=== PATIENT | female | born 1955 | race Caucasian/White ===

== ENCOUNTER → 2023-08-26 12:24 | Outpatient (REF) | payer OTHER, SELFPAY | LOC: RAD 12:24 | PROVIDERS: ATTENDING PHYSICIAN Internal Medicine | DX: J45.41 Moderate persistent asthma with (acute) exacerbation (principal) | CPT/HCPCS: 71046 ==

== ENCOUNTER 2023-08-30 23:53 | Emergency (ER) | payer OTHER, SELFPAY ==
[2023-08-30 23:56] VITALS: BP 155/96
[2023-08-31 00:45] VITALS: BMI 27.0
[2023-08-31 01:10] LABS: % Basophils 0.7 % (0-2); % Immature Granulocytes 3.2 % (0-0.5); % Lymphocytes 20.1 % (20.5-51.1); % Monocytes 5.5 % (1.7-9.3); % Neutrophils 70.5 % (42.2-75.2); Absolute Basophils 0.1 10^3/uL (0-0.2); Absolute Immature Granulocytes 0.4 10^3/uL (0-0.05); Absolute Lymphocytes 2.4 10^3/uL (1.2-3.4); Absolute Monocytes 0.6 10^3/uL (0.1-0.6); Absolute Neutrophils 8.3 10^3/uL (1.4-6.5); Hematocrit 37.7 % (37.0-47.0); Hemoglobin 13.2 g/dL (12.0-16.0); Mean Corpuscular Hgb 32.4 pg (27.0-31.0); Mean Corpuscular Volume 92.4 fL (81.0-99.0); Mean Platelet Volume 9.1 fL (7.4-10.4); Nucleated Red Blood Cells % 0 %; Platelet Count 363 10^3/uL (130-400); Red Blood Cell Count 4.08 10^6/uL (4.20-5.40); Red Cell Dist. Width 12.5 % (11.5-14.5); White Blood Cell Count 11.7 10^3/uL (4.8-10.8)
--- NOTE | 2023-08-31 01:14 | ED.GENMED ---
History of Present Illness
General
Chief Complaint: Abdominal Symptoms
Source: patient
Exam Limitations: none
Time Seen by Provider: 08/31/23 00:18
Nursing documentation reviewed up to this point in time: agreed with
History of Present Illness
History of Present Illness:
pt is a 67 y/o F h/o well controlled
no h/o cardiac symptoms
3 weeks ago started with R ear pain after watching grandkids who were sick
he had the pain fro 3 days before going to
starte augmentin
but then a few days later ymptoms worsening into sinuses and she started coughing
she called her PCP and they told her to do pred 40 mg day 1 and then pred 20 mg bid x 5 days which she did
went to see ENT for the ear last week and had NPL/scope showing sinusutis and was started on cefdinir on 08/24
pt says she still has been coughing but felt like with her qvar and her albuterol nebs she was improving
but then today felt pain in her left rib area worse with exhalation and severe with coughing
she is trying not to cough becaues of the pain
she denies tendenress in this area
she also feels her abdomen is bloated
no abdoimal tednerness
no edema in her legs
no h/o chf
no fever, chills
had cxr a few days ago before pain started
Past History
Past History
ED Past Medical History: Asthma, Cancer (skin cancer), GERD and NIDDM
ED Past Surgical History: Gynecological (NC, hysterectomy) and Other (Breast augmentation and abdominoplasty, wisdom teeth)
Social History
Tobacco: Non-smoker
Alcohol: None
Drug: None
Personal:
Living: with family
Phy Exam
Physical Exam
Physical Exam:
GENERAL: Alert , in no apparent distress
EYE: pupils equal and reactive
NECK: Supple
ENT: b/l TM s clear, pharynx erythematous but no tonsillar hypertrophy or exudates
CARDIAC: Regular rate and rhythm, no edema
LUNGS: no resp distress, no tachypnea
+ occ cough and appears uncomfortable L ribs with cough
b/l wheezing
crackles b/l bases
NO RIB TENDRNESS; NO RASH
+ pain wth cough
ABDOMEN: Soft, slightly distended, without focal tenderness, no r/g, no cvat, normal bowel sounds
NEUROLOGICAL: Alert and oriented, no focal neuro deficits
SKIN: Warm and dry, skin intact.
MUSCULOSKELETAL: No edema, well perfused.
PSYCH: Normal and appropriate interaction.
Course
Orders/Labs/Results
Orders:
Orders
08/31/23 00:46
Electrocardiogram (*1) Stat
Reason for Study: Other
Other Reason for Exam: chest pain
Cardiac Monitoring- Treatment ONCE
EKG- Treatment ONCE
CR Chest - 2 Views Urgent
Comment:
Reason For Exam: cough, wheezing,
CR Ribs-left 2 Vw No Pa Chest Urgent
Reason For Exam: left chest pain with cough
08/31/23 01:04
Monotest Urgent
08/31/23 01:05
Complete Blood Count/With Diff Urgent
Comprehensive Metabolic Panel Urgent
Lipase Urgent
NT-proBNP Urgent
Troponin I Urgent
08/31/23 02:30
Ipratropium/Albuterol Sulfate [Duoneb] 3 ml INH R NOW ONE
Ketorolac [Toradol] 30 mg IV NOW STA
Abnormal Lab Results
08/31/23
01:05
WBC 11.7 H 10^3/uL
(4.8-10.8)
RBC 4.08 L 10^6/uL
(4.20-5.40)
MCH 32.4 H pg
(27.0-31.0)
Abs Immat Gran (auto) 0.4 H 10^3/uL
(0-0.05)
Absolute Neuts (auto) 8.3 H 10^3/uL
(1.4-6.5)
Immature Gran % 3.2 H %
(0-0.5)
Lymphocytes % 20.1 L %
(20.5-51.1)
BUN 19 H mg/dl
(7-17)
Glucose 125 H mg/dl
(70-99)
Lipase 415 H U/L
(23-300)
08/31/23 01:05
08/31/23 01:05
Vital Signs
Initial and Last Documented VS:
Initial Vital Signs
Temp Pulse Resp BP Pulse Ox
98.8 F 89 16 155/96 95
08/30/23 23:56 08/30/23 23:56 08/30/23 23:56 08/30/23 23:56 08/30/23 23:56
Last Documented Vital Signs
Temp Pulse Resp BP Pulse Ox
98.8 F 82 14 115/72 96
08/30/23 23:56 08/31/23 02:00 08/31/23 02:00 08/31/23 02:00 08/31/23 02:00
MDM/Problems Addressed
Differential Diagnosis Includes:
rib contusion/fx, pleural effusion, pna, pancreatitis; less likely PE
MDM/Problems Addressed:
67 y/o F with h/o asthma
3 weeks uri sxs, starting R ear to sinus to bornchitis
on her 3rd abx
finished augemtnin for ear, then pcp prescribed z neil and steoris, and ent added cefdinir 5 days ago
feeling improvement but still having some wheezing
has been coughing hard
and tonight has felt pain in her L ribs with coughing which is not worse with deep breathig but when she exhales
she also feels very bloated
no diarrhea, no vomiting, no fever, no constipation
no rash
no exertional symptoms
no PE rf
retired RN
is not worried herself about a blood clot
but more that she could have fluid there or a rib injury
she is well appearing
when she coughs she holds her side
normal pulse ox, no tachy, no tachypnea
normal bp
no appreciated murmur
lungs b/l wheezes end exp, prolonged exp
occ cough
no abdominal tendenress but some bloating
no rash
wbc mildly elevated, could be related to steroisd
lipase mild 400s; no vomiting
on ozempic but no issues
xrays indep reviewed no obv rib fx, no ptx, no pna; but dshe has a lot of gas int he LUQ of the abdomen on the cxr
likely the culprit of some of the pain/distension
also could have costochrondrtitis
discussed d dimer but pt delcined
duoneb and toradol and d/c home
*Critical Care Note
Total Time (30-74mins, 75-104mins- exclusive of procedures): Not Applicable
ED Attending Note
-
Portions of this chart may have been created with voice recognition software.� Occasional wrong word or��sound alike� substitutions may have occurred due to the inherent limitations of voice recognition software.
Discharge Plan
Departure
Condition: Fair
Covid-19: Not Applicable
Discharge Problem:
Acute asthmatic bronchitis, Pain in rib, Abdominal bloating
Instructions: Gas and bloating, Bronchitis, Adult ED
Prescriptions:
No Action
Qvar 8.7 GM aerosol
1 puff inhalation DAILY
famotidine 20 MG tablet
20 mg PO HS PRN (Reason: reflux)
ascorbic acid (vitamin C) [Vitamin C] 500 MG tablet
500 mg PO DAILY
prednisone 20 MG tablet
20 mg PO BID
montelukast 5 mg Tablet,Chewable
5 mg PO QPM
triamcinolone acetonide [Nasacort] 55 mcg Aerosol,[place]phant
2 spray INTRANASAL DAILY
azelastine [Astelin] 137 mcg (0.1 %) [place],Non-Aerosol
1 spray INTRANASAL BID
cefdinir 300 mg Capsule
300 mg PO Q12H
cholecalciferol (vitamin D3) [Vitamin D3] 25 mcg (1,000 unit) Tablet
25 mcg PO DAILY
levocetirizine [Xyzal] 5 mg Tablet
5 mg PO DAILY
Ozempic 0.25 mg or 0.5 mg (2 mg/3 mL) Pen Injector
0.5 mg SC QWEEK
zolpidem [Ambien] 5 mg Tablet
2.5 mg PO HS PRN (Reason: sleep)
Referrals:
Evangelina Ramos MD [Family Provider] - Follow up in 2-3 days
Activity Restrictions/Additional Instructions:
YOUR PAIN MAY BE FROM BLOATING FROM THE ANTIBIOTICS (SO BE SURE TO USE PROBIOTIC AND MAYBE TRY A DOSE OF GAS EX OR MIRALAX)
OR IT COULD BE FROM COUGHING/COSTOCHRONDRITITS
YOUR WORKK UP HERE IS REASSURING
HAVE YOUR PRIMARY DOCTOR REPEAT YOUR PANCREAS ENZYME
TAKE TYLENOL 2-3 TIMES A DAY FOR PAIN
USE YOUR STEROID TAPER PRESCRIBE BY YOUR DOCTOR
USE A PROBIOTIC
CONSIDER ADDITIONAL TESTING IF YOU HAVE WORSENING SYMPTOMS LIKE CHEST PAIN OR SHORTNESS OF BREATH, FEVER, RASH, VOMITING
RETURN FOR ANY CONCERNS.
Interventions
Interventions:
*Risk Screen - Suicide Last Done: 08/30/23 23:56
*General Assessment Last Done: 08/30/23 23:56
*Neglect/Abuse Screening Last Done: 08/30/23 23:56
*ED COVID-19 Vaccine History Last Done: 08/31/23 00:29
EW-Ijrbop-Oxfbltusyx Assessment Last Done: 08/31/23 01:11
Discharge Date and Time
Print Language: GERMAN
[2023-08-31 01:28] LABS: Monotest Negative (Negative)
[2023-08-31 01:37] LABS: NT-proBNP 57.7 pg/ml; Troponin I < 0.012 ng/ml
[2023-08-31 01:38] VITALS: BP 129/75
[2023-08-31 01:40] LABS: ALT (SGPT) 34 U/L (0-35); AST (SGOT) 34 U/L (14-36); Albumin 4.3 g/dl (3.5-5.0); Alkaline Phosphatase 95 U/L (38-126); Blood Urea Nitrogen 19 mg/dl (7-17); Calcium 9.4 mg/dl (8.4-10.2); Carbon Dioxide 22 mmol/L (22-30); Chloride 106 mmol/L (98-107); Estimated Creatinine Clearance 62 ml/min; Glucose 125 mg/dl (70-99); Lipase 415 U/L (23-300); Potassium 4.5 mmol/L (3.5-5.1); Sodium 138 mmol/L (135-145); Total Bilirubin 0.6 mg/dl (0.2-1.3); Total Protein 6.8 g/dl (6.3-8.2); eGFR > 60.00
[2023-08-31 02:00] VITALS: BP 115/72
[2023-08-31] MEDS: DUONEB 3 ML INH (02:37)
[2023-08-31] MEDS: TORADOL 30 MG IV (02:38)
[2023-08-31 02:56] VITALS: BP 108/65
== END 2023-08-31 03:05 | disposition home or self-care (01) ==
LOC: EMR 23:53
PROVIDERS: Physician Assistant; EMERGENCY PHYSICIAN Emergency Medicine; FAMILY PHYSICIAN Student in an Organized Health Care Education/Training Program
DX: J45.901 Unspecified asthma with (acute) exacerbation (principal); R07.81 Pleurodynia; R14.0 Abdominal distension (gaseous)
CPT/HCPCS: 99285; 96374; 94640; 71046; 71100; 80053; 83690; 83880; 84484; 85025; 86308; 93005

== ENCOUNTER → 2023-09-17 11:49 | Outpatient (REF) | payer OTHER, SELFPAY | LOC: WDC 11:49 | PROVIDERS: ATTENDING PHYSICIAN Obstetrics & Gynecology Gynecology; FAMILY PHYSICIAN Student in an Organized Health Care Education/Training Program | DX: Z12.31 Encounter for screening mammogram for malignant neoplasm of breast (principal) | CPT/HCPCS: 77063; 77067 ==

== ENCOUNTER → 2023-12-04 07:19 | Outpatient (REF) | payer OTHER, SELFPAY ==
[2023-12-04 08:48] LABS: % Basophils 0.9 % (0-2); % Eosinophils 2.5 % (0-6); % Immature Granulocytes 0.4 % (0-0.5); % Lymphocytes 43.8 % (20.5-51.1); % Monocytes 9.4 % (1.7-9.3); Absolute Basophils 0.1 10^3/uL (0-0.2); Absolute Eosinophils 0.1 10^3/uL (0-0.7); Absolute Lymphocytes 2.5 10^3/uL (1.2-3.4); Absolute Monocytes 0.5 10^3/uL (0.1-0.6); Absolute Neutrophils 2.4 10^3/uL (1.4-6.5); Hematocrit 39.8 % (37.0-47.0); Hemoglobin 13.5 g/dL (12.0-16.0); Mean Corp Hgb Conc. 33.9 g/dL (33.0-37.0); Mean Corpuscular Hgb 33.3 pg (27.0-31.0); Mean Platelet Volume 9.7 fL (7.4-10.4); Nucleated Red Blood Cells % 0 %; Platelet Count 285 10^3/uL (130-400); Red Blood Cell Count 4.06 10^6/uL (4.20-5.40); Red Cell Dist. Width 12.2 % (11.5-14.5); White Blood Cell Count 5.6 10^3/uL (4.8-10.8)
[2023-12-04 09:22] LABS: ALT (SGPT) 20 U/L (0-35); AST (SGOT) 27 U/L (14-36); Albumin 4.2 g/dl (3.5-5.0); Alkaline Phosphatase 76 U/L (38-126); Blood Urea Nitrogen 12 mg/dl (7-17); Calcium 9.8 mg/dl (8.4-10.2); Carbon Dioxide 26 mmol/L (22-30); Chloride 107 mmol/L (98-107); Glucose 87 mg/dl (70-99); HDL Cholesterol 60 mg/dl; LDL Cholesterol, Calculated 99 mg/dl; Lipase 421 U/L (23-300); Potassium 5.2 mmol/L (3.5-5.1); Sodium 143 mmol/L (135-145); Total Bilirubin 0.5 mg/dl (0.2-1.3); Total Cholesterol 189 mg/dl (50-199); Total Protein 6.3 g/dl (6.3-8.2); Triglyceride 152 mg/dl (10-149); Very Low Density Lipoprotein 30 mg/dl (0-30); eGFR > 60.00
[2023-12-04 09:46] LABS: TSH Reflex To Free T4 5.92 uIU/ml (0.47-4.68)
[2023-12-04 09:54] LABS: Microalbumin, Random Urine < 0.6 mg/dl (0.6-1.7)
[2023-12-04 10:00] LABS: Glycohemoglobin (HgbA1c) 5.3 % (4.0-5.6)
[2023-12-04 10:21] LABS: Free T4 1.09 ng/dl (0.78-2.19)
== END ==
LOC: REG 07:19
PROVIDERS: ATTENDING PHYSICIAN Student in an Organized Health Care Education/Training Program
DX: R53.83 Other fatigue (principal); E78.2 Mixed hyperlipidemia; Z00.00 Encounter for general adult medical examination without abnormal findings
CPT/HCPCS: 36415; 80053; 80061; 82043; 82570; 83036; 83690; 84439; 84443; 85025

== ENCOUNTER → 2024-01-01 08:31 | Outpatient (REF) | payer OTHER, SELFPAY | LOC: HWRAD 08:31 | PROVIDERS: ATTENDING PHYSICIAN Student in an Organized Health Care Education/Training Program; REFERRING PHYSICIAN Obstetrics & Gynecology Gynecology | DX: Z87.39 Personal history of other diseases of the musculoskeletal system and connective tissue (principal) | CPT/HCPCS: 77080 ==

== ENCOUNTER → 2024-01-04 07:23 | Outpatient (REF) | payer OTHER, SELFPAY ==
[2024-01-04 09:24] LABS: Albumin 4.3 g/dl (3.5-5.0); Blood Urea Nitrogen 14 mg/dl (7-17); Calcium 9.7 mg/dl (8.4-10.2); Carbon Dioxide 26 mmol/L (22-30); Chloride 105 mmol/L (98-107); Glucose 90 mg/dl (70-99); Phosphorus 4.4 mg/dl (2.5-4.5); Potassium 4.7 mmol/L (3.5-5.1); Sodium 143 mmol/L (135-145); eGFR > 60.00
[2024-01-04 09:49] LABS: TSH Reflex To Free T4 3.47 uIU/ml (0.47-4.68)
== END ==
LOC: REG 07:23
PROVIDERS: ATTENDING PHYSICIAN Student in an Organized Health Care Education/Training Program
DX: R94.6 Abnormal results of thyroid function studies (principal); E87.5 Hyperkalemia
CPT/HCPCS: 36415; 80069; 84443

== ENCOUNTER → 2024-04-13 15:32 | Outpatient (REF) | payer OTHER, SELFPAY | LOC: DHSLP 15:32 | PROVIDERS: ATTENDING PHYSICIAN Internal Medicine Critical Care Medicine; FAMILY PHYSICIAN Student in an Organized Health Care Education/Training Program | DX: G47.33 Obstructive sleep apnea (adult) (pediatric) (principal) | CPT/HCPCS: 95800 ==

== ENCOUNTER → 2024-09-19 12:26 | Outpatient (REF) | payer OTHER, SELFPAY | LOC: WDC 12:26 | PROVIDERS: ATTENDING PHYSICIAN Obstetrics & Gynecology Gynecology | DX: Z12.31 Encounter for screening mammogram for malignant neoplasm of breast (principal) | CPT/HCPCS: 77063; 77067 ==

== ENCOUNTER → 2024-12-29 08:58 | Outpatient (REF) | payer OTHER, SELFPAY ==
[2024-12-29 09:59] LABS: Hematocrit 41.3 % (37.0-47.0); Hemoglobin 13.5 g/dL (12.0-16.0); Mean Corp Hgb Conc. 32.7 g/dL (33.0-37.0); Mean Corpuscular Volume 97.2 fL (81.0-99.0); Nucleated Red Blood Cells % 0 %; Platelet Count 292 10^3/uL (130-400); Red Cell Dist. Width 12.5 % (11.5-14.5)
[2024-12-29 10:25] LABS: ALT (SGPT) 20 U/L (0-35); AST (SGOT) 24 U/L (14-36); Albumin 4.5 g/dl (3.5-5.0); Alkaline Phosphatase 83 U/L (38-126); Blood Urea Nitrogen 14 mg/dl (7-17); Calcium 10.0 mg/dl (8.4-10.2); Carbon Dioxide 27 mmol/L (22-30); Chloride 105 mmol/L (98-107); Glucose 95 mg/dl (70-99); HDL Cholesterol 70 mg/dl; LDL Cholesterol, Calculated 135 mg/dl; Potassium 5.5 mmol/L (3.5-5.1); Sodium 137 mmol/L (135-145); Total Protein 7.1 g/dl (6.3-8.2); Very Low Density Lipoprotein 21 mg/dl (0-30); eGFR > 60.00
[2024-12-29 11:54] LABS: Glycohemoglobin (HgbA1c) 5.4 % (4.0-5.9)
[2024-12-29 14:43] LABS: Microalb - Urine Creatinine 12.700 mg/dl
[2024-12-29 14:52] LABS: Microalbumin, Random Urine < 0.6 mg/dl (0.6-1.7)
== END ==
LOC: REG 08:58
PROVIDERS: ATTENDING PHYSICIAN Student in an Organized Health Care Education/Training Program
DX: Z00.00 Encounter for general adult medical examination without abnormal findings (principal); E78.2 Mixed hyperlipidemia; E11.9 Type 2 diabetes mellitus without complications; R00.2 Palpitations; Z68.27 Body mass index [BMI] 27.0-27.9, adult
CPT/HCPCS: 36415; 80053; 80061; 82043; 82570; 83036; 84443; 85025